=== PATIENT | female | born 1995 | race Caucasian/White ===

== ENCOUNTER 2018-04-15 20:55 | Emergency (ER) | payer MEDICAID, OTHER ==
[~2018-04-15] VITALS: Ht 149.9 cm; Wt 63.5 kg
[2018-04-15 21:11] VITALS: BP 130/80
--- NOTE | 2018-04-15 21:14 | NUR ---
PATIENT PRESENTS TO ED WITH DIZZINESS AND BULLOCK 2/10 PAIN X1 HR. PT STATES STATES SHE TOOK ONE HER FATHERS HTN MEDS BY ACCIDENT THINKING IT WAS A TYLENOL TABLET. PT NOW C/O BULLOCK AND DIZZINESS. DENIES N/V/D; SKIN IS PINK/WARM/DRY; AAOX4 WITH EVEN AND STEADY GAIT; LUNGS CLEAR BL; HR EVEN AND REGULAR; PT DENIES ANY FEVER, CP, SOB, OR COUGH AT THIS TIME; VSS; PATIENT POSITIONED FOR COMFORT; HOB ELEVATED; BEDRAILS UP X2; BED DOWN. ER MD MADE AWARE OF PT STATUS. CONTINUE TO MONITOR.
--- NOTE | 2018-04-15 21:14 | NUR ---
TO BED # 9 AMBULATORY , REPORT GIVEN TO ELIAS BOYD
[2018-04-15 22:45] VITALS: BP 130/80
--- NOTE | 2018-04-15 22:45 | NUR ---
Patient discharged with v/s stable. Written and verbal after care instructions given and explained. Patient verbalized understanding. Ambulatory with steady gait. All questions addressed prior to discharge. Advised to follow up with PMD.
== END 2018-04-15 22:45 | disposition home or self-care (01) ==
LOC: MED 20:55
DX: R06.00 Dyspnea, unspecified (principal); R06.02 Shortness of breath
CPT/HCPCS: 71045; 93005; 99284

== ENCOUNTER 2018-05-07 03:13 | Emergency (ER) | payer MEDICAID ==
[~2018-05-07] VITALS: Ht 149.9 cm; Wt 72.6 kg
[2018-05-07 03:18] VITALS: BP 119/74
[2018-05-07] MEDS ORDERED: KETOROLAC 60 MG/2 ML VIAL IM ONE (03:35)
[2018-05-07 03:50] VITALS: BP 115/70
== END 2018-05-07 03:51 | disposition home or self-care (01) ==
LOC: MED 03:13
DX: H60.92 Unspecified otitis externa, left ear (principal)
CPT/HCPCS: 96372; 99283; J1885

== ENCOUNTER 2018-05-10 13:08 | Emergency (ER) | payer MEDICAID ==
[~2018-05-10] VITALS: Ht 149.9 cm; Wt 71.8 kg
[2018-05-10 13:13] VITALS: BP 128/76
--- NOTE | 2018-05-10 13:14 | NUR ---
PT AMBULATED BACK TO ER LOBBY WAITING FOR AN OPEN ER BED.
--- NOTE | 2018-05-10 13:59 | NUR ---
PT PLACED IN RM 12
--- NOTE | 2018-05-10 14:02 | NUR ---
22/F PRESENT TO ER C/O LT EAR PAIN x 7 DAYS. PT STATES SHE WAS SEEN 3 IN [facility] ER FOR SAME S/SX. DENIES ANY DRAINAGE/FEVERS. DISCOMFORT WITH MOVEMENT. AWAITING FOR ER MD CANELA.
[2018-05-10 15:18] VITALS: BP 128/69
--- NOTE | 2018-05-10 15:18 | NUR ---
Patient discharged with v/s stable. Written and verbal after care instructions given and explained. Patient alert, oriented and verbalized understanding of instructions. Ambulatory with steady gait. All questions addressed prior to discharge. ID band removed. Patient advised to follow up with PMD. Rx of TYLENOL AND DEBROX given. Patient educated on indication of medication including possible reaction and side effects. Opportunity to ask questions provided and answered.
== END 2018-05-10 15:18 | disposition home or self-care (01) ==
LOC: MED 13:08
DX: H61.23 Impacted cerumen, bilateral (principal); H60.92 Unspecified otitis externa, left ear
CPT/HCPCS: 99282

== ENCOUNTER 2019-10-07 06:56 | Emergency (ER) | payer MEDICAID ==
[~2019-10-07] VITALS: Ht 149.9 cm; Wt 71.7 kg
[2019-10-07 07:00] VITALS: BP 139/75
--- NOTE | 2019-10-07 07:04 | NUR ---
PT TAKEN TO BED 2
--- NOTE | 2019-10-07 07:17 | NUR ---
24 Y/O F C/O LEFT FLANK PAIN THAT RADIATES TO HER UPPER BACK/NECK AREA. PT STATES PAIN STARTED X1 DAY AGO. 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 07/04 PAIN WITH ADL'S. PT NOT ABLE TO STAND STRAIGHT, POSITIONED FOR COMFORT, BED LOWERED, AT BEDSIDE. KARIS
--- NOTE | 2019-10-07 07:22 | NUR ---
AT [facility].
[2019-10-07 07:38] LABS: APPEARANCE,URINE CLEAR (CLEAR); BILIRUBIN,URINE NEGATIVE (NEGATIVE); BLOOD, URINE TRACE-I (NEGATIVE); COLOR,URINE YELLOW (YELLOW); LEUKOCYTE ESTERASE ,URINE 1+ (NEGATIVE); NITRITE, URINE NEGATIVE (NEGATIVE); UGLUCOSE NEGATIVE (NEGATIVE)
[2019-10-07] MEDS ORDERED: CYCLOBENZAPRINE 10 MG TAB PO ONE (07:40)
[2019-10-07] MEDS ORDERED: KETOROLAC 30 MG/ML VIAL IM ONE (07:40)
--- NOTE | 2019-10-07 08:07 | NUR ---
PT RESTING COMFORTABLY, STATES PAIN IS 7/10. AT BEDSIDE.
[2019-10-07 08:19] LABS: RBC,URINE 0-5 /HPF (0-5); YEAST,URINE Rare /HPF (None Seen)
[2019-10-07 09:21] VITALS: BP 139/75
--- NOTE | 2019-10-07 09:22 | NUR ---
Patient discharged with v/s stable. Written and verbal after care instructions given and explained. Patient alert, oriented and verbalized understanding of instructions. Ambulatory with steady gait. All questions addressed prior to discharge. ID band removed. Patient advised to follow up with PMD. Rx of FLEXERIL, MOTRIN, KEFLEX given. Patient educated on indication of medication including possible reaction and side effects. Opportunity to ask questions provided and answered.
== END 2019-10-07 09:22 | disposition home or self-care (01) ==
LOC: MED 06:56
DX: N39.0 Urinary tract infection, site not specified (principal)
CPT/HCPCS: 81001; 81025; 87086; 96372; 99283; J1885

== ENCOUNTER 2020-02-19 13:26 | Emergency (ER) | payer MEDICAID, OTHER ==
[~2020-02-19] VITALS: Ht 149.9 cm; Wt 68.9 kg
[2020-02-19 13:38] VITALS: BP 121/67
[2020-02-19 14:18] LABS: BASOPHILS # (AUTO) 0.1 K/uL (0.00-0.22); BASOPHILS % (AUTO) 0.8 % (0.0-2.0); EOSINOPHILS # (AUTO) 0.4 K/uL (0-0.4); EOSINOPHILS % (AUTO) 5.2 % (0.0-4.0); HEMATOCRIT 34.8 % (36-48); HEMOGLOBIN 11.2 g/dL (12.0-16.0); LYMPHOCYTES # (AUTO) 2.1 K/uL (2.5-16.5); LYMPHOCYTES % (AUTO) 28.8 % (20.5-51.1); MEAN CORPUSCULAR HEMOGLOBIN 26 pg (27-31); MEAN CORPUSCULAR HGB CONC 32 g/dL (33-37); MEAN CORPUSCULAR VOLUME 81.5 fL (80-94); MONOCYTES # (AUTO) 0.6 K/uL (0.8-1.0); MONOCYTES % (AUTO) 7.8 % (1.7-9.3); NEUTROPHILS # (AUTO) 4.2 K/uL (1.8-7.7); NEUTROPHILS % (AUTO) 57.4 % (42.2-75.2); PLATELET COUNT (AUTO) 284 K/uL (140-450); RED BLOOD CELL COUNT(AUTO) 4.27 MIL/uL (4.20-5.40); RED CELL DISTRIBUTION WIDTH 14.8 % (11.6-13.7); WHITE BLOOD COUNT (AUTO) 7.4 K/uL (4.8-10.8)
[2020-02-19 14:21] LABS: APPEARANCE,URINE HAZY (CLEAR); BILIRUBIN,URINE NEGATIVE (NEGATIVE); BLOOD, URINE NEGATIVE (NEGATIVE); COLOR,URINE YELLOW (YELLOW); LEUKOCYTE ESTERASE ,URINE 3+ (NEGATIVE); NITRITE, URINE NEGATIVE (NEGATIVE); UGLUCOSE NEGATIVE (NEGATIVE)
[2020-02-19 14:31] LABS: ANION GAP 9.5 (8-16); CREATININE 0.7 mg/dL (0.6-1.3); POTASSIUM 3.5 mmol/L (3.5-5.1)
[2020-02-19 14:49] LABS: RBC,URINE 0-5 /HPF (0-5); WBC,URINE 20-60 /HPF (0-5)
== END 2020-02-19 15:35 | disposition home or self-care (01) ==
LOC: MED 13:26
DX: O99.89 Other specified diseases and conditions complicating pregnancy, childbirth and the puerperium (principal); O23.41 Unspecified infection of urinary tract in pregnancy, first trimester; Z34.91 Encounter for supervision of normal pregnancy, unspecified, first trimester; Z3A.01 Less than 8 weeks gestation of pregnancy
CPT/HCPCS: 36415; 76801; 76817; 80048; 81001; 81025; 84702; 85025; 86900; 86901; 87086; 99285; Q0092

== ENCOUNTER 2020-04-07 09:53 | Emergency (ER) | payer OTHER ==
[~2020-04-07] VITALS: Ht 149.9 cm; Wt 73.9 kg
[2020-04-07 10:01] VITALS: BP 113/71
--- NOTE | 2020-04-07 10:07 | NUR ---
WAIT AT LOBBY. HANDED ON URINE CUP.
--- NOTE | 2020-04-07 10:20 | NUR ---
PT W/C ASSISTED TO L&D.
--- NOTE | 2020-04-07 10:50 | NUR ---
PT BROUGHT BACK FROM L&D, PT ONLY 14 WEEKS .
--- NOTE | 2020-04-07 10:51 | NUR ---
C/O NO MOVEMENT 1 HOUR AGO AFTER HER 5 YEARS OLD DAUGHTER FALLING ON HER ABDOMEN. PT STATED SHE'S 14 WEEKS 1 DAY. [id number]. LMP 12/29/19. DENIES PAIN AT THIS TIME. MED HX: DENIES
--- NOTE | 2020-04-07 12:17 | NUR ---
PT BACK FROM ULTRASOUND
[2020-04-07 13:05] VITALS: BP 111/68
== END 2020-04-07 13:05 | disposition home or self-care (01) ==
LOC: MED 09:53 → EDSTATUS 10:20 → MLD 10:35 → UNDOADMOB 10:35 → EDSTATUS 11:33 → MED 13:05
DX: O9A.22 Injury, poisoning and certain other consequences of external causes complicating childbirth (principal); O36.8120 Decreased fetal movements, second trimester, not applicable or unspecified; Z3A.20 20 weeks gestation of pregnancy; W50.0XXA Accidental hit or strike by another person, initial encounter; Y93.89 Activity, other specified; Y92.89 Other specified places as the place of occurrence of the external cause; Y99.8 Other external cause status
CPT/HCPCS: 76805; 81025; 99284

== ENCOUNTER 2023-01-28 21:41 | Emergency (ER) | payer OTHER ==
[~2023-01-28] VITALS: Ht 149.9 cm; Wt 64.0 kg
[2023-01-28 22:06] VITALS: BP 110/75
--- NOTE | 2023-01-28 22:30 | NUR ---
PT TO 5
--- NOTE | 2023-01-28 22:41 | NUR ---
Patient being evaluated by physician at bedside.
--- NOTE | 2023-01-28 23:04 | NUR ---
URINE GIVEN TO LAB.
[2023-01-28 23:21] LABS: BASOPHILS % (AUTO) 0.4 % (0.0-2.0); EOSINOPHILS # (AUTO) 0.3 K/uL (0-0.4); EOSINOPHILS % (AUTO) 3.8 % (0.0-4.0); HEMATOCRIT 37.1 % (36-48); LYMPHOCYTES # (AUTO) 2.4 K/uL (2.5-16.5); LYMPHOCYTES % (AUTO) 31.1 % (20.5-51.1); MEAN CORPUSCULAR HEMOGLOBIN 26 pg (27-31); MEAN CORPUSCULAR HGB CONC 32 g/dL (33-37); MONOCYTES # (AUTO) 0.5 K/uL (0.8-1.0); MONOCYTES % (AUTO) 6.2 % (1.7-9.3); NEUTROPHILS # (AUTO) 4.5 K/uL (1.8-7.7); NEUTROPHILS % (AUTO) 58.5 % (42.2-75.2); PLATELET COUNT (AUTO) 323 K/uL (140-450); RED BLOOD CELL COUNT(AUTO) 4.64 MIL/uL (4.20-5.40); RED CELL DISTRIBUTION WIDTH 15.4 % (11.6-13.7); WHITE BLOOD COUNT (AUTO) 7.8 K/uL (4.8-10.8)
[2023-01-28 23:30] LABS: APPEARANCE,URINE CLEAR (CLEAR); BILIRUBIN,URINE NEGATIVE (NEGATIVE); BLOOD, URINE NEGATIVE (NEGATIVE); COLOR,URINE YELLOW (YELLOW); LEUKOCYTE ESTERASE ,URINE NEGATIVE (NEGATIVE); NITRITE, URINE NEGATIVE (NEGATIVE); UGLUCOSE NEGATIVE (NEGATIVE)
[2023-01-28 23:37] LABS: ALBUMIN 3.8 g/dL (3.4-5.0); ANION GAP 13.8 (8-16); CREATININE 0.7 mg/dL (0.6-1.3); POTASSIUM 3.8 mmol/L (3.5-5.1); TOTAL BILIRUBIN 0.2 mg/dL (0.0-1.0)
--- NOTE | 2023-01-29 00:03 | NUR ---
PT TO CT VIA WHEELCHAIR
--- NOTE | 2023-01-29 00:15 | NUR ---
PT RETURNED FROM CT
== END 2023-01-29 01:08 | disposition home or self-care (01) ==
LOC: MED 21:41
DX: R10.31 Right lower quadrant pain (principal); Z79.899 Other long term (current) drug therapy
CPT/HCPCS: 36415; 74177; 80053; 81003; 81025; 83690; 85025; 99285; Q9967

== ENCOUNTER 2023-03-01 21:46 | Emergency (ER) | payer OTHER ==
[~2023-03-01] VITALS: Ht 149.9 cm; Wt 64.0 kg
[2023-03-01 21:47] VITALS: BP 109/69
--- NOTE | 2023-03-01 21:50 | NUR ---
to lobby a/w bed ambulatory
--- NOTE | 2023-03-02 00:36 | NUR ---
PT AMB TO BED #3
--- NOTE | 2023-03-02 00:37 | NUR ---
redness, swelling, pain, warmth to touch, for 2 days, on her lower abd .
--- NOTE | 2023-03-02 01:25 | NUR ---
DR MAJOR AT BEDSIDE FOR EXAM
[2023-03-02] MEDS ORDERED: HYDROcodone/APAP 5/325 MG 1 TAB TAB PO ONE (01:35)
[2023-03-02] MEDS ORDERED: SULF-59 PO (01:36)
[2023-03-02] MEDS ORDERED: NAPR-54 PO (01:36)
[2023-03-02] MEDS ORDERED: CEPH-588 PO (01:36)
[2023-03-02 02:00] VITALS: BP 109/69
--- NOTE | 2023-03-02 02:00 | NUR ---
Patient discharged with v/s stable. Written and verbal after care instructions given and explained. Patient alert, oriented and verbalized understanding of instructions. Ambulatory with steady gait. All questions addressed prior to discharge. ID band removed. Patient advised to follow up with PMD. Rx of KEFLEX, NAPROSYN given. Patient educated on indication of medication including possible reaction and side effects. Opportunity to ask questions provided and answered.
== END 2023-03-02 02:00 | disposition home or self-care (01) ==
LOC: MED 21:46
DX: L02.211 Cutaneous abscess of abdominal wall (principal); L03.311 Cellulitis of abdominal wall; Z79.899 Other long term (current) drug therapy
CPT/HCPCS: 99284

== ENCOUNTER 2023-12-16 21:32 | Emergency (ER) | payer OTHER ==
[~2023-12-16] VITALS: Ht 149.9 cm; Wt 66.2 kg
[~2023-12-16 21:32] MED LIST: CEPH-588 PO; NAPR-54 PO; SULF-59 PO
[2023-12-16 21:50] VITALS: BP 112/77; PULSE 92; RESP 19; TEMP 98.5; O2SAT 98
[2023-12-16] MEDS ORDERED: PHEN-1877 PO (22:25)
[2023-12-16] MEDS ORDERED: CIPR500T4 PO (22:25)
[2023-12-16 22:28] VITALS: BP 112/77; PULSE 92; RESP 19; TEMP 98.5; O2SAT 98
== END 2023-12-16 22:28 | disposition home or self-care (01) ==
LOC: MED 21:32
DX: N39.0 Urinary tract infection, site not specified (principal); Z79.899 Other long term (current) drug therapy
CPT/HCPCS: 81002; 81025; 99283

== ENCOUNTER 2024-01-03 15:58 | Emergency (ER) | payer OTHER ==
[~2024-01-03] VITALS: Ht 149.9 cm; Wt 65.8 kg
[~2024-01-03 15:58] MED LIST changes: +CIPR500T4 PO; +PHEN-1877 PO
[2024-01-03 16:09] VITALS: BP 115/81; PULSE 66; RESP 18; TEMP 97.7; O2SAT 99
[2024-01-03] MEDS ORDERED: OFLO5SOL27 RIGHT EAR (16:31)
[2024-01-03] MEDS ORDERED: CARB15DR61 BOTH EARS (16:31)
== END 2024-01-03 16:43 | disposition home or self-care (01) ==
LOC: MED 15:58
DX: H60.91 Unspecified otitis externa, right ear (principal); H61.21 Impacted cerumen, right ear; Z79.899 Other long term (current) drug therapy
CPT/HCPCS: 99283

== ENCOUNTER 2024-01-08 11:11 | Emergency (ER) | payer OTHER ==
[~2024-01-08] VITALS: Ht 149.9 cm; Wt 65.8 kg
[~2024-01-08 11:11] MED LIST changes: +CARB15DR61 BOTH EARS; +OFLO5SOL27 RIGHT EAR
[2024-01-08 11:15] VITALS: BP 124/76; PULSE 83; RESP 18; TEMP 97.8; O2SAT 98
[2024-01-08] MEDS ORDERED: OFLO5SOL27 RIGHT EAR (13:39)
== END 2024-01-08 13:53 | disposition home or self-care (01) ==
LOC: MED 11:11
DX: H61.23 Impacted cerumen, bilateral (principal); H60.91 Unspecified otitis externa, right ear; Z79.1 Long term (current) use of non-steroidal anti-inflammatories (NSAID); Z79.899 Other long term (current) drug therapy
CPT/HCPCS: 99283